=== PATIENT | female | born 1980 | race Caucasian/White ===

== ENCOUNTER 2017-08-03 02:35 | Emergency (ER) | payer OTHER, SELFPAY ==
[2017-08-03 02:37] VITALS: BP 159/102; PULSE 108; RESP 16; TEMP 36.4; O2SAT 100; BMI 29.7
--- NOTE | 2017-08-03 03:08 | ED.DCSUM_ITS ---
- ER Visit Summary Date of Service: 08/03/17 Chief Complaint: Pelvic cramping History of Present Illness: The patient is a 37 F 5 weeks by last menstrual period presents continued pelvic cramping for the past 2 days. Home positive on Sunday. Called her [facility] on Sunday, Dr. Phoebe Kaur, had a serum hCG on Sunday. Sunday started having vaginal bleeding. States there is a pool blood with clots, call her OB, states another blood test was done on Sunday. Over the past 2 days of gone through for total pads. States she is a positive from blood type. 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 She states she had one stillborn and 2 miscarriages. Last patch change was 3 hours ago. Denies any alcohol, tobacco, or illicit drug use. She does take vitamins along with her baby aspirin. No urinary symptoms. Physical Examination: General: Alert and oriented ?3, no acute distress HEENT: Normocephalic, atraumatic. Moist mucosa membranes Neck: supple, nontender. Cardiovascular: Regular rate and rhythm, no murmurs Respiratory: Normal breath sounds, symmetric, no distress Abdomen: Soft, nontender, nondistended : No external lesions. Speculum exam noted blood in the vault with no active bleeding. Normal cervix. Extremities: Nontender, no edema, pulses intact ?4 Neuro: no focal neurological deficits. Test Results: ABO: A positive, hCG 3. GC and chlamydia sent and pending. Emergency Department Course and Treatment: No active bleeding on pelvic examination. Cervical culture sent and pending. Patient is AB+. HCG quant was 3. When discussed with patient she said her recent one was 41. Discussed with patient with her likely blood and clots from 2 days ago she likely miscarried. She call her [facility] for outpatient follow-up. She will monitor bleeding. Treatment Plan: [] Disposition: Discharge Impression: 1. Vaginal bleeding, likely miscarriage This note was generated with [email or web address] dictation software. It may contain incorrect words, spelling, and punctuation that were not noted in review of the chart prior to signing ED Disposition - Plan for ED Patient: Disposition: Home or Assisted Living Chief Complaint: Vag Bld, Preg Diagnosis: Vaginal bleeding Instructions: ED Bleed Irregular Vaginal, ED Miscarriage Poss Referrals: Care Physician,No Primary [Primary Care Provider] - Kate Kaur [STAFF PHYSICIAN] - 1 Day Additional Instructions: HCG quant equal 3 today. Likely miscarriage. Call your [facility] for outpatient follow-up.
[2017-08-03 03:44] LABS: hCG Titer Quant., Serum 3 mIU/mL (<9 non-preg)
[2017-08-03 04:12] LABS: Bacteria 0 SEEN /hpf (None Seen); Mucous, Urine 0 SEEN /hpf (<or=2+)
[2017-08-03 04:16] LABS: Color, Urine Yellow (Yellow); Glucose, Dipstick Normal (Normal); Ketone-Dipstick Negative (Negative); Leukocyte Esterase-Dipstick 25 /ul (Negative); Nitrite-Dipstick Negative (Negative); Occult Blood-Urine 250 /ul (Negative); Protein-Dipstick Negative (Negative); Urine Bilirubin Dipstick Negative (Negative); Urine Clarity Clear (Clear); Urine Urobilinogen Normal (Normal)
[2017-08-03 04:23] LABS: Red Blood Cells-Urine 5-10 SEEN /hpf (0-5); Squamous Epithelial Cells - UA 0-5 SEEN /hpf (5-10)
[2017-08-03 04:24] LABS: White Blood Cells 0-5 SEEN /hpf (0-5)
[2017-08-03 05:01] VITALS: PULSE 76; RESP 16; O2SAT 98
[2017-08-03 05:27] LABS: Chlamydia Trachomatis by PCR Negative (Negative); Neisserai gonorrhoeae by PCR Negative (Negative); Probe Check PASS; Sample Adequacy Control PASS; Specimen Processing Control PASS
== END 2017-08-03 05:02 | disposition home or self-care (01) ==
PROVIDERS: Emergency Provider Emergency Medicine
DX: N93.9 Abnormal uterine and vaginal bleeding, unspecified (principal); R10.2 Pelvic and perineal pain
CPT/HCPCS: 81001; 84702; 86900; 87210; 87491; 87591; 99282